=== PATIENT | female | born 2000 | race Two or more races ===

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

== ENCOUNTER 2021-03-02 13:09 | Emergency (ER) | payer OTHER ==
[~2021-03-02] VITALS: Ht 167.6 cm; Wt 77.3 kg
[~2021-03-02 13:09] MED LIST: EFFEXOR XR150 MG PO; EFFEXOR25 MG; VISTARIL25 MG; VISTARIL25 MG PO
[2021-03-02 13:27] VITALS: BP 125/64; Ht 167.6 cm; Wt 77.3 kg
[2021-03-02 13:51] LABS: BASOPHILS 0.2 % (0-2); EOSINOPHILS 0.1 % (0-7); HEMATOCRIT 37.5 % (36.0-48.0); HEMOGLOBIN 12.6 g/dL (12-16); IMMATURE GRANULOCYTES 0.2 % (0-5); LYMPHOCYTE ABS# 0.92 10x3/uL (1.18-3.74); LYMPHOCYTES 8.1 % (15-50); MCH 28.1 pg (26.0-34.0); MCHC 33.6 g/dL (31.0-37.0); MCV 83.5 fL (80.0-100.0); MEAN PLATELET VOLUME 9.5 fL (7.4-10.4); MONOCYTES 5.7 % (2-11); NEUTROPHIL ABS# 9.76 10x3/uL (1.56-6.13); NEUTROPHILS 85.7 % (40-80); RBC 4.49 10x6/uL (4.00-5.40); RDW 14.3 % (11.5-14.5); WBC 11.4 10x3/uL (4.8-10.8)
[2021-03-02 13:52] LABS: PLATELET COUNT 283 10x3/uL (130-400)
[2021-03-02 13:53] LABS: HCG URINE NEGATIVE (NEGATIVE)
[2021-03-02 13:54] LABS: BILIRUBIN NEGATIVE (NEGATIVE); KETONE NEGATIVE (NEGATIVE); NITRITE NEGATIVE (NEGATIVE); UROBILINOGEN NORMAL mg/dL (< 2)
[2021-03-02 13:57] LABS: BACTERIA MOD HPF (NONE SEEN)
[2021-03-02 14:00] LABS: CALC OSMOLALITY 277 mosm/kg (275-300); CALCIUM 9.4 mg/dL (8.5-10.1); CARBON DIOXIDE 26.3 mmol/L (21.0-32.0); CHLORIDE - SERUM 103 mmol/L (98-107); CREATININE - SERUM 0.9 mg/dL (0.6-1.3); GLUCOSE 97 mg/dL (74-106); POTASSIUM - SERUM 4.1 mmol/L (3.5-5.1); SODIUM 139 mmol/L (136-145); UREA NITROGEN 12 mg/dL (7-18); eGFR NON AFRICAN AMERICAN 85 mL/min (90-120)
[2021-03-02 14:04] LABS: UDS - AMPHET NEGATIVE QUAL (NEGATIVE); UDS - BARB NEGATIVE QUAL (NEGATIVE); UDS - BENZO NEGATIVE QUAL (NEGATIVE); UDS - COCAINE NEGATIVE QUAL (NEGATIVE); UDS - OPIATE NEGATIVE QUAL (NEGATIVE); UDS - PCP NEGATIVE QUAL (NEGATIVE); UDS - THC POSITIVE QUAL (NEGATIVE)
[2021-03-02 14:05] LABS: ALBUMIN 4.1 g/dL (3.4-5.0); ALKALINE PHOSPHATASE 88 U/L (30-120); ALT (SGPT) 19 U/L (10-68); BILIRUBIN - TOTAL 0.42 mg/dL (0.2-1.3); MAGNESIUM - SERUM 2.2 mg/dL (1.8-2.4)
--- NOTE | 2021-03-02 14:30 | NUR ---
DR. SALAZAR NOTIFIED AND REVIEWED PT'S BEHAVIOR AND ASSESSMENT RESULTS. PT IS A LOW RISK PER DR. SALAZAR. DR. SALAZAR STATED TO GIVE RESOURCES TO PT AT TIME OF DISCHARGE. NO FURTHER ORDERS AT THIS TIME. RESOURCES REVIEWED WITH PT AND SHE VERBALIZED UNDERSTANDING.
== END 2021-03-02 15:31 | disposition home or self-care (01) ==
LOC: D.ER 13:09
PROVIDERS: Family Medicine
DX: F41.8 Other specified anxiety disorders (principal); F40.00 Agoraphobia, unspecified